=== PATIENT | male | born 2000 | race Caucasian/White ===

== ENCOUNTER 2023-05-25 21:27 | Emergency (ER) | payer MEDICAID, SELFPAY ==
--- NOTE | 2023-05-25 21:29 | XRR_ITS ---
PROCEDURE INFORMATION: Exam: XR Right Ankle Exam date and time: 05/25/2023 9:52 PM Age: 23 years old Clinical indication: Injury or trauma; Other: Hurt RT ankle; Blunt trauma; Right TECHNIQUE: Imaging protocol: Radiologic exam of the right ankle. Views: 3 or more views. COMPARISON: No relevant prior studies available. FINDINGS: Bones/joints: 2-3 mm curvilinear avulsion fracture fragment noted adjacent to the tip of the lateral malleolus. Soft tissues: Soft tissue swelling along the lateral ankle. XR/XR ankle RT min 3V* [id number] IMPRESSION: Small avulsion fracture fragment adjacent to the lateral malleolus.
[2023-05-25 21:35] VITALS: BP 132/90; PULSE 84; RESP 17; TEMP 37.4; O2SAT 100; BMI 30.4
[2023-05-25 21:39] VITALS: BP 126/84; PULSE 73; RESP 16; O2SAT 98
--- NOTE | 2023-05-25 21:44 | W.ED.EXTPRO ---
HPI - Extremity Problem General: Chief complaint: Extremity Injury, Lower Stated complaint: Rt Ankle Injury Time Seen by Provider: 05/25/23 21:31 Source: patient Mode of arrival: ambulatory Limitations: no limitations History of Present Illness: 23-year-old male states that just prior to arrival states he had slipped off a stair and twisted his right ankle. He states he developed a pop in his ankle and was having right lateral ankle pain. Patient rates his pain a 5 out of 10 he denies any other injuries states pain is worse with ambulation improved with rest. Associated symptoms: Deny chest pain, fever(s) or rash Review of Systems Const: Denies: fever(s), chills, body aches or change in appetite ENMT: Denies: throat pain or dental pain Card: Denies: chest pain Resp: Denies: dyspnea GI: Denies: abdominal pain, nausea, vomiting or diarrhea Musc: Reports: extremity pain; Denies: neck pain or back pain Skin/Breast: Denies: rash Neuro: Denies: headache(s) Physical Exam Const: COMMON NORMALS: no acute distress and patient oriented x3 HENMT: COMMON NORMALS: normocephalic and atraumatic HEAD & SCALP: normocephalic and atraumatic Eye: COMMON NORMALS: conjunctivae normal CONJUNCTIVA: Yes conjunctivae normal Chest: COMMONS NORMALS: normal inspection of the chest Resp: COMMON NORMALS: normal respiratory effort Extremity: NARRATIVE EXTREMITY EXAM: Swelling noticed right lateral ankle tenderness palpation no obvious deformities Neuro: COMMON NORMALS: patient oriented x3 Psych: COMMON NORMALS: mental status grossly normal Skin: COMMON NORMALS: no rashes or lesions noted GENERAL SKIN EXAM: no rashes or lesions noted Course Vital Signs: Vital signs: Vital Signs Temperature 99.3 F 05/25/23 21:35 Pulse Rate 73 05/25/23 21:39 Respiratory Rate 16 05/25/23 21:39 Blood Pressure 126/84 05/25/23 21:39 Pulse Oximetry 98 05/25/23 21:39 Oxygen Delivery Me thod Room Air 05/25/23 21:39 MDM - Extremity (Nontraumatic) Medical Decision Making Patient presents with ankle sprain. X-ray of the ankle here is negative no fracture. Medical Records I reviewed the patient's medical records. XR interpretation done by ED provider, pending radiology final review ED provider radiology interpretation(s): xr r ankle: no acute fx Discharge Plan Discharge Patient Disposition: Home Clinical Impression: Ankle sprain and strain Condition: Stable Prescriptions: New Naprosyn 500 mg tablet 500 mg PO BID PRN (Reason: pain) Qty: 20 0RF Discharge Orders: Discharge ED (Routine); Ordered 05/25/23 Ordered By: Claribel Robin Referrals: Marcos Lee DPM [Physician] - 1-3 days Jos Mcgarry DO [Primary Care Provider] - Discharge Diet: Advance as tolerated Discharge Activity: Resume usual activity Patient Instructions: Ankle Sprain (ED) Coding Level of Care Code ED 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
[2023-05-25 22:14] VITALS: BP 126/84; PULSE 73; RESP 16; O2SAT 98
--- NOTE | 2023-05-25 22:15 | PC.NURSE ---
pt provided crutches and R ankle wrapped with maile wrap.
--- NOTE | 2023-05-25 22:20 | PC.NURSE ---
pt refused crutched prior to discharge.
--- NOTE | 2023-05-26 07:35 | DCPLANNER ---
Message sent to Podiatry office for a follow up on Ankle sprain.
--- NOTE | 2023-05-26 09:57 | DCPLANNER ---
Message sent to Podiatry -avulsion fracture fragment adjacent to the lateral malleolus.
== END 2023-05-25 22:21 | disposition home or self-care (01) ==
PROVIDERS: Emergency Provider Emergency Medicine; PCP Family Medicine
DX: S93.401A Sprain of unspecified ligament of right ankle, initial encounter (principal); S96.911A Strain of unspecified muscle and tendon at ankle and foot level, right foot, initial encounter; W01.0XXA Fall on same level from slipping, tripping and stumbling without subsequent striking against object, initial encounter
CPT/HCPCS: 73610; 99283